=== PATIENT | female | born 1985 | race Caucasian/White ===

== ENCOUNTER 2022-04-09 11:37 | Emergency (ER) | payer MEDICAID ==
[2022-04-09 11:47] VITALS: BP 130/72
[2022-04-09] MEDS ORDERED: HYDROcod/ACETAM 5/325 MG TABLET PO STA (12:24)
--- NOTE | 2022-04-09 12:24 | XRAY Report ---
PROCEDURE: Ankle 3 View LT INDICATIONS: Trauma TECHNIQUE: 3 views of the ankle were acquired. COMPARISON: None FINDINGS: Bones: No fractures or dislocations. Ankle mortise is normally aligned. No suspicious bony lesions . Soft tissues: No tibiotalar joint effusion. Achilles tendon appears normal. IMPRESSION: Normal left ankle Reviewed by: Mao Chauhan on 04/09/2022 12:23 PM PDT Approved by: Mao Chauhan on 04/09/2022 12:23 PM PDT Station ID: [id number]
--- NOTE | 2022-04-09 12:29 | ED Physician Documentation ---
PD HPI LOWER EXT INJURY - Stated complaint Stated Complaint: LT ANKLE INJURY - Chief complaint Chief Complaint: Trauma Ext - History obtained from History obtained from: Patient - Additional information Additional information: She stepped funny off a curb last night and hurt her left ankle. She is able to walk and bear weight. She also has some left buttock pain but not as bad. No other injuries. She felt a pop and this is a reinjury of an ankle she sprained about 4 months ago. Review of Systems Constitutional: reports: Reviewed and negative Cardiac: reports: Reviewed and negative Respiratory: reports: Reviewed and negative PD PAST MEDICAL HISTORY - Present Medications Home Medications: Ambulatory Orders Medication Instructions Recorded Confirmed HYDROcod/ACETAM 5/325 [[place] 5/325] 1 - 2 tab PO Q6H PRN #10 tablet 04/09/22 - Allergies Allergies/Adverse Reactions: Allergies Allergy/AdvReac Type Severity Reaction Status Date / Time No Known Drug Allergies Allergy Verified 04/09/22 11:48 PD ED PE NORMAL - Vitals Vital signs reviewed: Yes - General General: Alert and oriented X 3, No acute distress - Extremities Extremities: Other (Mild tenderness over the talar dome and lateral left ankle without deformity. No proximal fibular or foot tenderness. Pelvis is stable and nontender.) - Neuro Neuro: Alert and oriented X 3, Normal speech Results - Vitals Vitals: Vital Signs - 24 hr 04/09/22 11:42 Temperature 36.8 C Heart Rate 104 H Respiratory 16 Rate Blood Pressure 130/72 O2 Saturation 100 Oxygen O2 Source Room air Departure - Departure Disposition: 01 Home, Self Care Clinical Impression: Left ankle sprain Condition: Good Record reviewed to determine appropriate education?: Yes Instructions: ED Sprain Ankle W X Ray Prescriptions: HYDROcod/ACETAM 5/325 [[place] 5/325] 1 - 2 tab PO Q6H PRN #10 tablet PRN Reason: Pain Comments: I sent your prescription electronically to [facility] in [place]. Recheck with your doctor in a week if not better, return for new or worsening symptoms. I am prescribing a short course of narcotic pain medication for you. These are potentially dangerous and addictive medications that should be used carefully. These medications may constipate you. Take an wawr-fry-zdltwrp stool softener (docusate) twice daily with plenty of water while taking these medications. If you go 24 hours without a bowel movement, take [id number] miralax, per package instructions. Do not drink or drive while taking these medications. If you received narcotic or sedating medications while in the emergency department, do not drive for 24 hours. Store this medication in a safe, secure place and out of reach of children. It is a violation of federal law to give or sell this medication to another person or to use in a manner other than prescribed. The ED will not refill narcotic prescriptions, including prescriptions lost or stolen. To dispose of unwanted medications: 1. [facility] at [address] in [place] has a medication drop box. They accept prescription medications (in pill form) Wednesday through Wednesday 9:00 a.m. to 5:00 p.m. 2. [facility] [employer] accepts prescription medications (in pill form only) for disposal year round. Call for more information. 3. Contact the [facility] for the next [facility] sponsored prescription drug collection event. , [phone], or [phone]; Note that many narcotic pain relievers also contain Tylenol/acetaminophen. Please ensure that your total dose of acetaminophen from all sources does not exceed 3 g (3000 mg) per day.
== END 2022-04-09 12:51 | disposition home or self-care (01) ==
LOC: ED 11:37
DX: S93.402A Sprain of unspecified ligament of left ankle, initial encounter (principal); S99.912A Unspecified injury of left ankle, initial encounter; X58.XXXA Exposure to other specified factors, initial encounter; Y93.89 Activity, other specified; Y92.9 Unspecified place or not applicable
CPT/HCPCS: 73610; 99282; 99283; A9270